=== PATIENT | male | born 2000 | race Caucasian/White ===

== ENCOUNTER 2019-12-13 08:29 | Emergency (ER) | payer SELFPAY ==
[2019-12-13 08:46] VITALS: BP 151/78; PULSE 85; RESP 16; TEMP 37.2; O2SAT 99
--- NOTE | 2019-12-13 08:58 | ED.WOUNDLAC ---
HPI - Wound/Laceration General Chief Complaint: Wound/Laceration Stated Complaint: laceration left arm Time Seen by Provider: 12/13/19 08:50 Source: patient Mode of arrival: ambulatory Limitations: no limitations History of Present Illness HPI narrative: Matias Mi is a 19-year-old male with history of multiple lacerations who comes to the [facility] care after sticking hand through window when upset with girlfriend. States his feelings were hurt. He has multiple small lacerations of his arm with 2 or 3 areas of skin avulsion but all are superficial. Patient states pain is 3 out of 10, states that he occasionally acts out when he is upset or feelings are hurt Related Data Allergies Allergy/AdvReac Type Severity Reaction Status Date / Time No Known Allergies Allergy Unknown Verified 12/13/19 08:56 Review of Systems Review of Systems: Narrative: CONSTITUTIONAL: Denies fever, chills, sweats. EYES: Denies visual changes, redness, discharge. ENT: Denies rhinorrhea, congestion, sore throat, otalgia. CARDIOVASCULAR: Denies chest pain, palpitations, edema. RESPIRATORY: Denies dyspnea, wheezing, cough GASTROINTESTINAL: Denies abdominal pain, nausea, vomiting, diarrhea. GENITOURINARY: Denies dysuria, hematuria, abnormal discharge SKIN: Denies rash or itching. Multiple small skin lacerations (10-12) NEUROLOGIC: Denies numbness, or focal weakness. PSYCHIATRIC: Denies anxiety or depression. PMFSH Past Medical History Medical History No active medical problems Family History Family History Other Diabetes mellitus Social History Social History (Updated 12/13/19 @ 09:18 by Sayra Davis CNP) Smoking packs per day: 0.5 Smoking cigarettes per day: 10.0 Smoking status: Current every day smoker Alcohol intake: former Living arrangements: with family Gender identity (if verbalized by the patient): Male Comments At time of signature, I agree with nursing past medical, surgical, social and family history. There is no relevant family history pertinent to the presenting complaint. Patient's blood pressure currently elevated due to stress of situation injury to arm Exam Narrative: Exam Narrative: GENERAL: This is a well-nourished, well-developed patient, in mild distress. HEAD: normocephalic, atraumatic. EYES: Sclera clear/white. Vision is grossly intact. EARS: Hearing grossly intact. NOSE: External nose normal without nasal discharge, nares without redness, no rhinorrhea. THROAT: Mucous membranes moist, NECK: Neck supple, non-tender CARDIOVASCULAR: Regular rate and rhythm without murmurs, gallops, or rubs. RESPIRATORY: Clear to auscultation. Breath sounds equal bilaterally. No wheezes, rales, or rhonchi. GASTROINTESTINAL: Abdomen soft, non-tender, SKIN: warm, intact with no suspicious lesions or rash, good texture and turgor. 10-12 small superficial lacerations to her arm-controlled bleeding NEURO: awake, alert, and oriented to person, place and time. There were no obvious focal neurologic abnormalities. Steady gait EXTREMITIES: Normal range of motion. BACK: Nontender without deformity Course Course Emergency Course: Wounds irrigated and repaired with Steri-Strips and dressing On Keflex. Ibuprofen 800 mg twice daily Follow-up with primary care physician Vital Signs Vital signs: Vital Signs Temperature 98.9 F 12/13/19 08:46 Pulse Rate 85 12/13/19 08:46 Respiratory Rate 16 12/13/19 08:46 Blood Pressure 151/78 H 12/13/19 08:46 Pulse Oximetry 99 12/13/19 08:46 Temperature 98.9 F 12/13/19 08:46 Pulse Rate 85 12/13/19 08:46 Respiratory Rate 16 12/13/19 08:46 Blood Pressure 151/78 H 12/13/19 08:46 Pulse Oximetry 99 12/13/19 08:46 Procedures Laceration Laceration 1: Date: 12/13/19 Time: : Site: upper extremity Side (If
[2019-12-13] MEDS: TETANUS,DIPHTHERIA,AC PERTUSSIS ADULT (0.5 ML) BOOSTRIX IM (09:16)
== END 2019-12-13 09:30 | disposition home or self-care (01) ==
PROVIDERS: Emergency Provider Nurse Practitioner; PCP Emergency Medicine
DX: S41.112A Laceration without foreign body of left upper arm, initial encounter (principal); W25.XXXA Contact with sharp glass, initial encounter; Z23 Encounter for immunization; F17.210 Nicotine dependence, cigarettes, uncomplicated
CPT/HCPCS: 90471; 90715; 99213; G0463

== ENCOUNTER 2021-08-11 20:46 | Emergency (ER) | payer SELFPAY ==
--- NOTE | ~2021-08-11 | XR_ITS ---
EXAMINATION: XR chest 2V Exam Date/Time: 08/11/2021 21:19 CDT HISTORY: SOB, GENERALIZED CP, HX CHILDHOOD ASTHMA, SMOKER Comparison: None available. RESULT: Lines, tubes, and devices: None. Lungs and pleura: Clear. Cardiomediastinal silhouette: Normal cardiomediastinal silhouette. Other: No acute osseous or upper abdominal finding. IMPRESSION: No acute cardiopulmonary process. Reviewed, dictated and finalized at location K.
[2021-08-11 20:48] VITALS: BP 146/77; PULSE 104; RESP 20; TEMP 36.8; O2SAT 96
--- NOTE | 2021-08-11 21:12 | ECG_ITS ---
Measurements Intervals [place] Rate: 85 P: 45 RI: 150 QRS: 73 QRSD: 102 T: 61 QT: 334 QTc: 398 Interpretive Statements SINUS RHYTHM NORMAL ECG Electronically Signed On 08-12-2021 6:10:09 CDT by Max Weeks D.O.
--- NOTE | 2021-08-11 21:13 | ED.SKABFB ---
HPI - Skin/Abscess/Foreign Bdy General Chief complaint: Skin/Abscess/Foreign Body Stated complaint: lumps all over head and neck Time Seen by Provider: 08/11/21 21:03 History of Present Illness HPI narrative: Patient is a 21-year-old male here for evaluation of multiple lumps that he noticed on his body. States he first noticed a lump on his left neck about a month ago, and since then it has grown in size. The lump is painful and firm. States he has noted lump on the right side of his neck developed last week, in addition to one on the top of his head several days ago. Additionally reports excessive fatigue over the past month, he has had little to no energy to do anything, which is led to almost a 40 pound weight gain. States he has also had exertional shortness of breath, which he attributed to his smoking. Denies cough, fevers, chills, bone pain, history of malignancy in immediate family. No new medications, patient states he was previously healthy. Related Data Allergies Allergy/AdvReac Type Severity Reaction Status Date / Time No Known Allergies Allergy Unknown Verified 08/11/21 21:31 Review of Systems Review of Systems: Gen: Reports fatigue and weight gain. Eyes: Denies eye pain or visual change ENT: Denies congestion Respiratory: Reports shortness of breath. Denies shortness of breath or cough CV: Denies chest pain or palpitations GI: Denies abdominal pain nausea, emesis or diarrhea : denies burning, urgency, frequency or hematuria Musculoskeletal: Denies back pain or muscle pain Neuro: Denies numbness, tingling, weakness or focal weakness Skin: Reports lumps on neck. Denies rash Except as documented, all other systems reviewed and negative PMF Past Medical History Medical History (Updated 08/12/21 @ 00:01 by Rachel Sagastume) No active medical problems Family History Family History Other Diabetes mellitus Social History Social History (Updated 12/13/19 @ 09:18 by Sayra Davis CNP) Smoking packs per day: 0.5 Smoking cigarettes per day: 10.0 Smoking status: Current every day smoker Alcohol intake: former Gender identity (if verbalized by the patient): Male Exam Narrative: APPEARANCE: Well appearing, no pain in distress, well-nourished. Head: normocephalic and atraumatic. EYES: PERRLA/EOMI, conjunctivae clear NOSE: No nasal drainage EARS: External ear normal in appearance THROAT: Oropharynx is clear. Mucous membranes are moist. NECK: Supple. firm, tender, somewhat mobile left posterior cervical lymphadenopathy. Smaller area of lymphadenopathy to right posterior cervical region that is also firm and tender. RESPIRATORY: Airway patent, respirations nonlabored. Clear to auscultation bilaterally, no rales, rhonchi, wheezing. CARDIOVASCULAR: Regular rate and rhythm without murmurs, rubs, or gallops. ABDOMINAL: Normoactive bowel sounds. Soft, nontender, nondistended. No rebound tenderness or guarding. MUSCULOSKELETAL: Extremities are warm and well-perfused. Moves all extremities well. No edema. NEURO: Normal speech. No focal neurologic deficits. SKIN: patient has scab to posterior aspect of scalp. PSYCHIATRIC: Normal affect/mood. Course Vital Signs Vital signs: Vital Signs Temperature 98.2 F 08/11/21 20:48 Pulse Rate 104 H 08/11/21 20:48 Respiratory Rate 20 08/11/21 20:48 Blood Pressure 146/77 H 08/11/21 20:48 Pulse Oximetry 96 08/11/21 20:48 Temperature 98.2 F 08/11/21 20:48 Pulse Rate 85 08/11/21 23:01 Respiratory Rate 16 08/11/21 23:01 Blood Pressure 125/65 08/11/21 23:01 Pulse Oximetry 97 08/11/21 23:01 MDM - Skin/Abscess/Foreign Bdy MDM Narrative Medical decision making narrative: 21-year-old male here for evaluation of lymphadenopathy and fatigue over the past month. Patient with firm, tender posterior lymphadenopathy on the right and the left side. Work-up significant f
[2021-08-11 21:50] LABS: Basophils Absolute Auto 0.1 K/mm3 (0.0-0.1); Basophils Percent Auto 0.4 % (0.2-1.2); Eosinophils Absolute Auto 0.2 K/mm3 (0-0.3); Eosinophils Percent Auto 1.8 % (0-4.4); Hematocrit 45.4 % (42.0-52.0); Immature Granulocyte Absolute 0.05 K/mm3 (0.00-0.031); Immature Granulocyte Percent A 0.4 % (0-0.5); Lymphocytes Absolute Auto 3.67 K/mm3 (0.9-3.2); Lymphocytes Percent Auto 26.9 % (18.3-44.2); Mean Corpuscular Hemoglobin 30.4 pg (26-34); Mean Corpuscular Volume 92.1 fl (80-100); Mean Platelet Volume 8.6 fl (7.4-10.4); Monocytes Absolute Auto 0.8 K/mm3 (0.1-0.6); Monocytes Percent Auto 5.8 % (2.6-8.5); Neutrophils Absolute Auto 8.8 K/mm3 (1.3-6.7); Neutrophils Percent Auto 64.7 % (45.5-73.1); Platelet Count Result 293 k/mm3 (150-375); Red Blood Count 4.93 M/mm3 (4.6-6.20); Red Cell Distribution Width 12.8 % (11.5-14.5); White Blood Count 13.6 K/mm3 (4.5-10.0)
[2021-08-11 22:00] LABS: Alanine Aminotransferase 31 U/L (6-50); Albumin Level 4.7 g/dL (3.5-5.1); Alkaline Phosphatase 79 U/L (38-126); Anion Gap 8 mmol/L (8-16); Aspartate Amino Transferase 31 U/L (17-59); Bilirubin,Total 0.3 mg/dL (0.2-1.3); Blood Urea Nitrogen 20 mg/dL (9-20); Calcium 8.7 mg/dL (8.4-10.2); Carbon Dioxide 25 mmol/L (22-30); Chloride 103 mmol/L (98-107); Estimated CRCL calculation 115 ml/min; Estimated Glomerular Filt Rate > 60; Glucose 100 mg/dL (65-110); Potassium 4.5 mmol/L (3.4-5.0); Sodium 136 mmol/L (137-145)
[2021-08-11 22:26] LABS: Monoscreen Negative (Negative); Negative Monotest Control Negative (Negative); Positive Monotest Control Positive (Positive)
[2021-08-11 23:01] VITALS: BP 125/65; PULSE 85; RESP 16; O2SAT 97
== END 2021-08-11 23:03 | disposition home or self-care (01) ==
PROVIDERS: Physician Assistant; Emergency Provider Emergency Medicine
DX: R59.1 Generalized enlarged lymph nodes (principal); F17.210 Nicotine dependence, cigarettes, uncomplicated
CPT/HCPCS: 36415; 71046; 80053; 85025; 86308; 93005; 99283

== ENCOUNTER 2022-01-03 15:53 | Emergency (ER) | payer OTHER, SELFPAY ==
--- NOTE | ~2022-01-03 | CT_ITS ---
EXAMINATION: CT soft tiss nk chst ab pel w DATE: 01/03/2022 22:39 INDICATION: Lymphadenopathy. Weight loss. Fever. TECHNIQUE: Computed tomography (CT) of the neck, chest, abdomen, and pelvis was performed with 100 mL Omnipaque 350 intravenous contrast. Automated exposure control and iterative reconstruction techniqu e were employed. The dose-length product was 2150.53 mGy-cm. COMPARISON: CT abdomen and pelvis 06/11/2016 FINDINGS: NECK CT: There are no pathologically enlarged lymph nodes. The cervical carotid arteries are normal. There is mild kyphosis of cervical spine. The mastoid air cells are normal. There is mild mucosal thickening i n the paranasal sinuses. There are carious lesions of teeth 4, 5, 13, 15, and 32. CHEST CT: There is no pneumonia or pleural effusion. The heart size is normal. No pericardial effusion. There a re no pathologically enlarged lymph nodes. ABDOMEN/PELVIS CT: The liver, gallbladder, spleen, pancreas, and adrenal glands are normal. There are cysts in the kidne ys measuring up to 16 mm on the right. There are no dilated loops of bowel. The appendix is normal. T here are no pathologically enlarged lymph nodes. There is no free intraperitoneal fluid. There is mil d thoracolumbar spondylosis. IMPRESSION: 1. No lymphadenopathy. 2. Dental disease. Reviewed, dictated and finalized at location B.
[2022-01-03 16:05] VITALS: BP 149/77; PULSE 76; RESP 18; TEMP 36.5; O2SAT 99
[2022-01-03 16:34] LABS: Basophils Percent Auto 0.4 % (0.2-1.2); Eosinophils Absolute Auto 0.2 K/mm3 (0-0.3); Eosinophils Percent Auto 2.4 % (0-4.4); Hematocrit 47.2 % (42.0-52.0); Hemoglobin 15.7 g/dL (14.0-18.0); Immature Granulocyte Absolute 0.03 K/mm3 (0.00-0.031); Immature Granulocyte Percent A 0.3 % (0-0.5); Lymphocytes Absolute Auto 3.52 K/mm3 (0.9-3.2); Lymphocytes Percent Auto 36.9 % (18.3-44.2); Mean Corpuscular HGB Conc 33.3 g/dl (32-36); Mean Corpuscular Hemoglobin 30.2 pg (26-34); Mean Corpuscular Volume 90.8 fl (80-100); Mean Platelet Volume 8.6 fl (7.4-10.4); Monocytes Absolute Auto 0.6 K/mm3 (0.1-0.6); Monocytes Percent Auto 5.8 % (2.6-8.5); Neutrophils Absolute Auto 5.2 K/mm3 (1.3-6.7); Neutrophils Percent Auto 54.2 % (45.5-73.1); Platelet Count Result 318 k/mm3 (150-375); White Blood Count 9.6 K/mm3 (4.5-10.0)
[2022-01-03 17:40] LABS: Alanine Aminotransferase 25 U/L (6-50); Albumin Level 4.5 g/dL (3.5-5.1); Alkaline Phosphatase 78 U/L (38-126); Anion Gap 11 mmol/L (8-16); Aspartate Amino Transferase 29 U/L (17-59); Bilirubin,Total 0.4 mg/dL (0.2-1.3); Blood Urea Nitrogen 11 mg/dL (9-20); Calcium 9.1 mg/dL (8.4-10.2); Carbon Dioxide 25 mmol/L (22-30); Chloride 104 mmol/L (98-107); Estimated CRCL calculation 147 ml/min; Estimated Glomerular Filt Rate > 60; Glucose 105 mg/dL (65-110); Potassium 4.1 mmol/L (3.4-5.0); Sodium 140 mmol/L (137-145)
[2022-01-03 21:12] VITALS: BP 141/93; PULSE 74; RESP 18; TEMP 36.1; O2SAT 99
--- NOTE | 2022-01-03 21:24 | ED.GENADULT ---
HPI - General Adult General Chief complaint: Unspecified Stated complaint: Body Aches, Swollen Lymph Node Time Seen by Provider: 01/03/22 21:14 History of Present Illness HPI narrative: 21-year-old male presents to the emergency room for evaluation of multiple swollen and tender lymph nodes to the left side of his neck. Patient states that these have been present for 5 weeks. Patient also remarks that he has been experiencing night fevers and weight loss of 20 pounds in the last 2 weeks. Patient has a positive family history of non-Hodgkin's lymphoma. Patient remarks that he has noticed new painful lymph nodes to the left submandibular lymph node chain. Related Data Home Medications Medication Instructions Recorded Confirmed cholecalciferol (vitamin D3) 25 25 mcg PO DAILY 12/31/21 mcg (1,000 unit) capsule Allergies Allergy/AdvReac Type Severity Reaction Status Date / Time No Known Allergies Allergy Unknown Verified 12/31/21 13:30 Review of Systems Review of Systems: CONSTITUTIONAL: Reports fever, chills and sweats EYES: Denies visual changes, redness, or discharge. ENT: Denies rhinorrhea, congestion, sore throat, or otalgia. CARDIOVASCULAR: Denies chest pain, palpitations, or edema. RESPIRATORY: Reports dyspnea. GASTROINTESTINAL: Reports abdominal pain GENITOURINARY: Denies dysuria or hematuria. SKIN: Denies rash or itching. MUSCULOSKELETAL: Denies back pain, joint pain, or myalgia. NEUROLOGIC: Denies headache, numbness, dizziness, or weakness. PSYCHIATRIC: Denies anxiety or depression. [facility] Past Medical History Medical History (Updated 01/03/22 @ 23:01 by Luis Daniel Wilkins APRN) Asthma Depression Lymphadenopathy, cervical Surgical History Surgical History History of right knee surgery History of testicular surgery testicular torsion History of tonsillectomy Family History Family History Other Lymphoma Grandparent Diabetes mellitus Heart disease Social History Social History Smoking packs per day: 0.5 Smoking cigarettes per day: 10.0 Years smoked: 11 Smoking pack-years: 5.50 Smoking status: Current every day smoker Tobacco type: cigarettes Alcohol intake: current Alcohol use details: rare 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 HEAD: Normocephalic, atraumatic. EYES: Conjunctivae normal, PERRLA and EOMI. ENT: External nose normal, Nares clear, no rhinorrhea or epistaxis. Mucous membranes moist. Oropharynx without tonsillar hypertrophy exudate or other lesions. External ears normal, bilateral TMs normal bilaterally NECK: Supple. Palpable lymph nodes to the left cervical and submandibular node chain. No palpable subclavian or axillary lymphadenopathy CHEST: Clear to auscultation. No respiratory distress. No wheezes rales or rhonchi. HEART: Regular rate and rhythm. No murmur heard. Normal peripheral pulses. ABD: No abdominal tenderness, no distention, bowel sounds present x4 EXTREMITIES: Normal range of motion. No edema. No clubbing or cyanosis SKIN: Warm, dry, no rash. No noted wounds NEURO: No focal deficits. Alert and oriented x3. MAEW. CN's II-XI intact bilaterally, normal gait PSYCH: Cooperative. Normal mood and affect. Course Vital Signs Vital signs: Vital Signs Temperature 36.5 C 01/03/22 16:05 Pulse Rate 76 01/03/22 16:05 Respiratory Rate 18 01/03/22 16:05 Blood Pressure 149/77 H 01/03/22 16:05 Pulse Oximetry 99 01/03/22 16:05 Oxygen Delivery Room Air 01/03/22 16:05 Temperature 36.1 C L 01/03/22 21:12 Pulse Rate 74 01/03/22 21:12 Respiratory Rate 18 01/03/22 21:12 Blood Pre
[2022-01-03] MEDS: SODIUM CHLORIDE 0.9% IV 1,000 ML 999 ML IV CONT (21:31)
--- NOTE | 2022-01-03 22:13 | PC.NURSE ---
Patient taken to CT at this time.
[2022-01-03 23:08] VITALS: BP 145/79; PULSE 73; RESP 18; O2SAT 99
== END 2022-01-03 23:08 | disposition home or self-care (01) ==
PROVIDERS: Emergency Medicine; Emergency Provider Nurse Practitioner Family; PCP Emergency Medicine
DX: R59.1 Generalized enlarged lymph nodes (principal); J45.909 Unspecified asthma, uncomplicated; F17.210 Nicotine dependence, cigarettes, uncomplicated
CPT/HCPCS: 36415; 70491; 71260; 74177; 80053; 85025; 96360; 99284; J7030; Q9967

== ENCOUNTER 2022-01-07 14:01 | Outpatient (CLI) | payer OTHER, SELFPAY ==
--- NOTE | ~2022-01-07 | US_ITS ---
EXAMINATION: US soft tissue head and neck DATE: 01/07/2022 14:36 INDICATION: Bilateral neck lymphadenopathy. TECHNIQUE: Multiple grayscale and Doppler ultrasound images of the head and neck were obtained. COMPARISON: CT neck 01/03/2022 FINDINGS: There are normal sized lymph nodes in the neck bilaterally. IMPRESSION: 1. No lymphadenopathy. Reviewed, dictated and finalized at location A. IMPRESSION: 1. No lymphadenopathy.
--- NOTE | ~2022-01-07 | XR_ITS ---
EXAMINATION: XR chest 2V 01/07/2022 14:18 INDICATION: Shortness of breath. Fever. PROCEDURE: 2 view chest COMPARISON: 08/11/2021 FINDINGS: The lungs are clear. The cardiomediastinal silhouette is within normal limits. There are no pleural effusions. There is no pneumothorax suspected. IMPRESSION: 1: NO ACUTE CARDIOPULMONARY DISEASE. Reviewed, dictated and finalized at location A.
== END 2022-01-07 14:02 | disposition home or self-care (01) ==
PROVIDERS: PCP Emergency Medicine; Visit Provider Emergency Medicine
DX: R59.0 Localized enlarged lymph nodes (principal)
CPT/HCPCS: 71046; 76536

== ENCOUNTER 2022-03-17 08:36 | Outpatient (CLI) | payer OTHER, SELFPAY ==
--- NOTE | ~2022-03-17 | US_ITS ---
EXAMINATION: US soft tissue head and neck DATE: 03/17/2022 09:25 INDICATION: Cervical lymphadenopathy. TECHNIQUE: Multiple grayscale and Doppler ultrasound images of the left and right sides of neck were obtained. COMPARISON: Ultrasound dated 01/07/[address] dated 01/03/2022 FINDINGS: Again seen are multiple prominent lymph nodes at the left and right neck. The majority remain within normal limits measuring <7 mm in maximal short axis diameter. There has however been interval increas e in size of a previously 2.4 x 2.3 x 0.9 cm lymph node located near the angle of the mandible which has increased in thickness now measuring 2.4 x 2.2 x 1.2 cm. IMPRESSION: 1. Multiple prominent bilateral cervical lymph nodes all which remain within normal limits in size wi th the exception of a right submandibular lymph node near the angle of the mandible which is increase d in thickness from 9 mm to 1.2 cm. Correlate with clinical history. Could consider continued ultraso und follow-up if there has been a recent known infection or other clear cause for reactive lymphadeno matt. Otherwise if there is no definitive etiology would recommend ultrasound-guided biopsy to exclu de lymphoma or other metastatic disease. Reviewed, dictated and finalized at location A. [employer] IMPRESSION: 1. Multiple prominent bilateral cervical lymph nodes all which remain within no rmal limits in size with the exception of a right submandibular lymph node near the angle of the mandible which is increased in thickness from 9 mm to 1.2 cm. Correlate with clinical history. Could consider continued ultrasound follow-up if there has been a recent known infection or other clear cause for reactive l ymphadenopathy. Otherwise if there is no definitive etiology would recommend ul trasound-guided biopsy to exclude lymphoma or other metastatic disease.
== END 2022-03-17 08:37 | disposition home or self-care (01) ==
PROVIDERS: PCP Emergency Medicine; Visit Provider Internal Medicine Hematology & Oncology
DX: R59.0 Localized enlarged lymph nodes (principal)
CPT/HCPCS: 76536

== ENCOUNTER 2022-04-03 14:18 | Emergency (ER) | payer OTHER, SELFPAY ==
--- NOTE | ~2022-04-03 | CT_ITS ---
EXAMINATION: CT abdomen pelvis wo con DATE: 04/03/2022 16:19 INDICATION: Back pain, testicular pain and hematuria TECHNIQUE: Computed tomography (CT) of the abdomen and pelvis was performed without intravenous contr ast. Automated exposure control and iterative reconstruction technique were employed. The dose-length product was 1766.25 mGy-cm. COMPARISON: CT dated 01/03/2022 FINDINGS: Lung bases are clear. Heart size is normal. No pericardial or pleural effusion. Liver, gallbladder, s pleen, pancreas, bilateral adrenal glands and left kidney are normal. 1.6 cm cyst at the lower pole o f the right kidney. Congestive either a duplicated right renal collecting system or extrarenal pelvis . Bladder is normal. Bowels including the appendix are normal. No free intraperitoneal gas or fluid. No pathologically enlarged abdominal or pelvic lymphadenopathy. Mild thoracic and lumbar spondylosis. IMPRESSION: 1. No acute intra-abdominal/pelvic process. Reviewed, dictated and finalized at location A. NTIST
--- NOTE | ~2022-04-03 | US_ITS ---
EXAMINATION: US scrotum doppler DATE: 04/03/2022 15:20 INDICATION: Bilateral testicular pain. Surgery for a left testicular torsion 6 years prior. TECHNIQUE: Testicular sonogram utilizing grayscale and Doppler COMPARISON: 06/11/2016 FINDINGS: The right testis measures 2.9 x 3.2 x 2.3 cm. The left testis measures 2.9 x 4.1 x 2.1 cm. Symmetric normal grayscale appearance to both testes. There is normal vascular flow to both testes. The right e pididymis is normal with normal vascular flow. The left epididymis is normal with normal vascular mishel w. There is no varicocele or hydrocele. IMPRESSION: 1. Normal scrotal ultrasound Reviewed, dictated and finalized at location A. [employer]
[2022-04-03 14:26] VITALS: BP 152/86; PULSE 94; RESP 20; TEMP 36.4; O2SAT 99
--- NOTE | 2022-04-03 14:50 | ED.BACK ---
HPI - Back Pain/Injury General Chief Complaint: Back Pain/Injury Stated Complaint: back pain Time Seen by Provider: 04/03/22 14:41 History of Present Illness HPI Narrative: 22-year-old male with history of testicular torsion and lower back pain presenting to the emergency department for evaluation of back pain and bilateral testicular pain. Patient states over the last few days he has had intermittent lower back pain that has not improved with stretching. Patient states last night when he woke up he was having bilateral testicular pain. Patient denies any injury of his back or of his testicles. Patient denies any fevers nausea vomiting diarrhea. Patient denies any associated numbness or weakness. Patient had torsion was when he was in high school and affected the left side. Patient denies any high risk sexual behavior. Related Data Home Medications Medication Instructions Recorded Confirmed cholecalciferol (vitamin D3) 25 25 mcg PO DAILY 12/31/21 01/08/22 mcg (1,000 unit) capsule Allergies Allergy/AdvReac Type Severity Reaction Status Date / Time No Known Allergies Allergy Unknown Verified 04/03/22 14:29 Review of Systems Review of Systems: CONSTITUTIONAL: Denies fever, chills, or sweats. EYES: Denies visual changes, redness, or discharge. ENT: Denies rhinorrhea, congestion, sore throat, or otalgia. CARDIOVASCULAR: Denies chest pain, palpitations, or edema. RESPIRATORY: Denies cough or dyspnea. GASTROINTESTINAL: Denies abdominal pain, nausea, vomiting, or diarrhea. GENITOURINARY: See HPI SKIN: Denies rash or itching. MUSCULOSKELETAL: See HPI NEUROLOGIC: Denies headache, numbness, or weakness. [facility] Past Medical History Medical History (Updated 04/03/22 @ 16:52 by Willie Swann MD) Asthma Depression Lymphadenopathy, cervical Surgical History Surgical History History of right knee surgery History of testicular surgery testicular torsion History of tonsillectomy Family History Family History Other Lymphoma Grandparent Diabetes mellitus Heart disease Social History Social History Smoking packs per day: 0.5 Smoking cigarettes per day: 10.0 Years smoked: 11 Smoking pack-years: 5.50 Smoking status: Current every day smoker Tobacco type: cigarettes Alcohol intake: current Alcohol use details: rare 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 HEAD: normocephalic, atraumatic. EYES: PERRLA/EOMI, conjunctivae clear. NOSE: Normal no drainage NECK: Supple. No adenopathy, no masses. RESPIRATORY: Airway patent, respirations nonlabored. Clear to auscultation bilaterally, no rales, rhonchi, wheezing. CARDIOVASCULAR: Regular rate and rhythm without murmurs rubs or gallops. ABDOMINAL: Soft, nontender, nondistended, normal bowel sounds. No CVA tenderness to palpitation bilaterally. MUSCULOSKELETAL: Reproducible lower back tenderness to palpation. NEURO: Alert. Cranial nerves II through XII intact. Good gait. Good coordination Genitourinary: Bilateral testicular tenderness to palpation. No scrotal edema, no erythema, neither testicle is high riding. SKIN: Warm, dry. Normal Color Course Course Emergency Course: Patient did have some mild testicular tenderness to palpation with normal testicular exam. Patient was afebrile with no leukocytosis. Patient's kidney function and CMP are similar to his baseline. Patient did have some hematuria on his UA so a CT scan was ordered to rule out ureteral calculi. Ultrasound showed no evidence of testicular torsion. CT abdomen pelvis showed no intra-abdominal/pelvic abnormality. Patient was updated on the results. Diff
[2022-04-03 15:52] LABS: Basophils Absolute Auto 0.1 K/mm3 (0.0-0.1); Basophils Percent Auto 0.6 % (0.2-1.2); Eosinophils Absolute Auto 0.3 K/mm3 (0-0.3); Hematocrit 46.8 % (42.0-52.0); Hemoglobin 15.6 g/dL (14.0-18.0); Immature Granulocyte Absolute 0.04 K/mm3 (0.00-0.031); Immature Granulocyte Percent A 0.4 % (0-0.5); Lymphocytes Absolute Auto 3.78 K/mm3 (0.9-3.2); Lymphocytes Percent Auto 40.3 % (18.3-44.2); Mean Corpuscular HGB Conc 33.3 g/dl (32-36); Mean Corpuscular Hemoglobin 30.8 pg (26-34); Mean Corpuscular Volume 92.5 fl (80-100); Mean Platelet Volume 8.5 fl (7.4-10.4); Monocytes Absolute Auto 0.7 K/mm3 (0.1-0.6); Monocytes Percent Auto 6.9 % (2.6-8.5); Neutrophils Absolute Auto 4.6 K/mm3 (1.3-6.7); Neutrophils Percent Auto 48.8 % (45.5-73.1); Platelet Count Result 316 k/mm3 (150-375); Red Blood Count 5.06 M/mm3 (4.6-6.20); White Blood Count 9.4 K/mm3 (4.5-10.0)
[2022-04-03 15:54] LABS: Appearance Urine Clear (Clear); Bilirubin Urine 1+ (Negative); Blood Urine Negative (Negative); Color Urine Yellow (Yellow); Glucose Urine UA Negative (Negative); Ketones Urine Negative (Negative); Leukocyte Esterase Ur Negative LEU/UL (Negative); Nitrate Urine Negative (Negative); Protein Urine 1+ mg/dL (Negative)
[2022-04-03 15:57] LABS: Calcium Oxalate Crystals Urine Present /hpf; Mucus Urine Few /lpf; Squamous Epithelial Cell Urine Rare /hpf (Few); WBC Urine 0-3 /hpf
[2022-04-03 15:58] LABS: Add Urine Microscopic? YES
[2022-04-03 16:08] LABS: Alanine Aminotransferase 45 U/L (6-50); Albumin Level 4.9 g/dL (3.5-5.1); Alkaline Phosphatase 78 U/L (38-126); Anion Gap 8 mmol/L (8-16); Aspartate Amino Transferase 33 U/L (17-59); Bilirubin,Total 0.4 mg/dL (0.2-1.3); Blood Urea Nitrogen 14 mg/dL (9-20); Calcium 8.9 mg/dL (8.4-10.2); Carbon Dioxide 28 mmol/L (22-30); Chloride 99 mmol/L (98-107); Estimated CRCL calculation 144 ml/min; Estimated Glomerular Filt Rate > 60; Glucose 91 mg/dL (65-110); Potassium 4.1 mmol/L (3.4-5.0); Sodium 135 mmol/L (137-145)
== END 2022-04-03 17:09 | disposition home or self-care (01) ==
PROVIDERS: Emergency Provider Emergency Medicine; PCP Emergency Medicine
DX: S39.012A Strain of muscle, fascia and tendon of lower back, initial encounter (principal); R31.29 Other microscopic hematuria; N50.812 Left testicular pain; N50.811 Right testicular pain; J45.909 Unspecified asthma, uncomplicated; F17.210 Nicotine dependence, cigarettes, uncomplicated; X58.XXXA Exposure to other specified factors, initial encounter
CPT/HCPCS: 36415; 74176; 76870; 80053; 81001; 85025; 87491; 87591; 93976; 99284

== ENCOUNTER 2022-07-03 09:55 | Emergency (ER) | payer OTHER, SELFPAY ==
[2022-07-03 10:14] VITALS: BP 155/96; PULSE 73; RESP 20; TEMP 36.3; O2SAT 99
--- NOTE | 2022-07-03 10:35 | ED.DENTAL ---
HPI - Dental/Oral General Chief complaint: Dental/Oral Stated complaint: Dental Pain Source: patient and RN notes reviewed History of Present Illness HPI Narrative: 22-year-old male presents to urgent care with complaints of left dental pain and left-sided facial swelling. Patient states he has been fighting a dental section quite some time and is currently on day 7 of amoxicillin. Patient states he woke up yesterday with swelling to his left side of face. Patient denies any fevers, chills, trouble breathing, or vomiting. Patient states he has been doubling up on his amoxicillin every day. Patient has appointment with his dentist on Tuesday. Some parts of this dictation were generated by voice recognition software and may contain typographical and/or grammatical inaccuracies. Related Data Allergies Allergy/AdvReac Type Severity Reaction Status Date / Time No Known Allergies Allergy Unknown Verified 07/03/22 10:13 Review of Systems Review of Systems: Pertinent positives and pertinent negatives per HPI. [facility] Past Medical History Medical History (Updated 07/03/22 @ 10:42 by Leni Medellin, CARLOS) Asthma Depression Lymphadenopathy, cervical Surgical History Surgical History History of right knee surgery History of testicular surgery testicular torsion History of tonsillectomy Family History Family History Other Lymphoma Grandparent Diabetes mellitus Heart disease Social History Social History Smoking packs per day: 0.5 Smoking cigarettes per day: 10.0 Years smoked: 11 Smoking pack-years: 5.50 Smoking status: Current every day smoker Tobacco type: cigarettes Alcohol intake: current Alcohol use details: rare Living arrangements: alone Occupation/Education: unemployed 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 There is no relevant family history pertinent to the patient complaint. Exam Narrative: GENERAL: This is a well-nourished, well-developed patient, in no apparent distress. HEAD: normocephalic, atraumatic. EYES: PERRL. Sclera clear/white. Vision is grossly intact. MOUTH:Cracked tooth #14. Swelling of gums adjacent to number 14 with left sided facial swelling. EARS: External ears normal, auditory canals clear and without drainage, TMs normal without perforation. Hearing grossly intact. NOSE: External nose normal with no obvious nasal discharge, nares without redness, no rhinorrhea. THROAT: Mucous membranes moist, posterior pharynx clear. NECK: Neck supple, non-tender without lymphadenopathy, masses or thyromegaly. CARDIOVASCULAR: Regular rate RESPIRATORY: Clear to auscultation. Breath sounds equal bilaterally. No wheezes, rales, or rhonchi. SKIN: warm, intact with no suspicious lesions or rash, good texture and turgor. NEURO: awake, alert, and oriented to person, place and time. There were no obvious focal neurologic abnormalities. Course Course Level of Care: Express Care Visit Vital Signs Vital signs: Vital Signs Temperature 97.4 F L 07/03/22 10:14 Pulse Rate 73 07/03/22 10:14 Respiratory Rate 20 07/03/22 10:14 Blood Pressure 155/96 H 07/03/22 10:14 Pulse Oximetry 99 07/03/22 10:14 Oxygen Delivery Room Air 07/03/22 10:14 Temperature 97.4 F L 07/03/22 10:14 Pulse Rate 73 07/03/22 10:14 Respiratory Rate 20 07/03/22 10:14 Blood Pressure 155/96 H 07/03/22 10:14 Pulse Oximetry 99 07/03/22 10:14 Oxygen Delivery Room Air 07/03/22 10:14 Reviewed MDM - Dental/Oral MDM Narrative Medical decision making narrative: Take antibiotic until it's gone. Brus
== END 2022-07-03 10:48 | disposition home or self-care (01) ==
PROVIDERS: Emergency Provider Nurse Practitioner Family; PCP Emergency Medicine
DX: K04.7 Periapical abscess without sinus (principal); F17.210 Nicotine dependence, cigarettes, uncomplicated; J45.909 Unspecified asthma, uncomplicated
CPT/HCPCS: 99213; G0463

== ENCOUNTER 2023-08-23 17:38 | Emergency (ER) | payer OTHER, SELFPAY ==
--- NOTE | ~2023-08-23 | XR_ITS ---
EXAM: XR foot LT min 3V DATE: 08/23/2023 18:01 HISTORY: Pain bruising swelling, 5th toe, distal lateral LT 1 day . COMPARISON: None available. FINDINGS: Normal mineralization. Mildly comminuted, nondisplaced, extra-articular fracture of the le ft fifth proximal phalange. No lytic or blastic lesion. Joint spaces are maintained. No erosion or pe riosteal change. Soft tissues within normal limits. IMPRESSION: Mildly comminuted, nondisplaced, extra-articular fracture of the left fifth proximal phal sofía. Reviewed, dictated and finalized at location K. IMPRESSION: Mildly comminuted, nondisplaced, extra-articular fracture of the le ft fifth proximal phalange.
[2023-08-23 17:47] VITALS: BP 153/73; PULSE 76; RESP 18; TEMP 36.6; O2SAT 97
--- NOTE | 2023-08-23 18:01 | ED.LOWEXIN ---
HPI - Extremity Injury (Lower) General Chief Complaint: Extremity Injury, Lower Stated Complaint: left pinky toe injury Time Seen by Provider: 08/23/23 17:50 Source: patient, RN notes reviewed and old records reviewed Mode of arrival: ambulatory Limitations: no limitations History of Present Illness HPI Narrative: 23-year-old male presents to the [facility] with complaints of left 5th toe pain, swelling and bruising as well as lateral foot pain. States that last night he kicked a kid story. No treatment prior to arrival Arrived barefoot Onset (ago): day(s) (1) Related Data Home Medications Medication Instructions Recorded Confirmed No Home Medications 08/23/23 08/23/23 Allergies Allergy/AdvReac Type Severity Reaction Status Date / Time No Known Allergies Allergy Unknown Verified 08/23/23 17:33 Review of Systems Review of Systems: All systems reviewed & are unremarkable except as noted in HPI and below Constitutional: Constitutional: Reports no additional constitutional complaints Eyes: Eyes: Reports no additional eye complaints ENT: Reports system reviewed and no additional complaints, except as documented Cardiovascular: Cardiovascular: Reports no additional cardiovascular complaints, Denies chest pain and Denies dyspnea Respiratory: Respiratory: Reports no additional respiratory complaints, Denies chest congestion, Denies cough and Denies dyspnea Gastrointestinal: Gastrointestinal: Reports no additional gastrointestinal complaints, Denies abdominal pain, Denies nausea and Denies vomiting Musculoskeletal: Musculoskeletal: Reports as per HPI Integumentary/Breasts: Skin/Breast: Reports system reviewed and no additional complaints, except as docu Neurologic: Reports system reviewed and no additional complaints, except as documented Psychiatric: Psychiatric: Reports no additional psychiatric complaints Allergic/Immunologic: Allergic/Immunologic: Reports no additional allergic/immunologic complaints [facility] Past Medical History Medical History Asthma Depression Lymphadenopathy, cervical Surgical History Surgical History History of right knee surgery History of testicular surgery testicular torsion History of tonsillectomy Family History Family History Other Lymphoma Grandparent Diabetes mellitus Heart disease Social History Social History Smoking packs per day: 0.5 Smoking cigarettes per day: 10.0 Years smoked: 11 Smoking pack-years: 5.50 Smoking status: Current every day smoker Tobacco type: cigarettes Alcohol intake: current Alcohol use details: rare Living arrangements: alone Occupation/Education: unemployed 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 There is no relevant family history pertinent to the patient complaint. Exam Const: General: cooperative, healthy appearing, comfortable, no acute distress, well developed, alert and well nourished Nutritional Appearance: well nourished and obese Orientation/consciousness: patient oriented x3 Limitations: no limitations HENMT: Head: normal to inspection Ears: hearing grossly normal bilaterally and external ears normal Face/Nose/Sinus: Normal external nose present, Normal nares present, Normal nasal mucous membranes and turbinates present, normal facial exam and face symmetric Face and sinus: normal facial exam and face symmetric Eyes: General: appearance normal, both eyes and all related structures Alignment and Position: alignment normal Periorbital: periorbital findings normal Pupils: Equal, round
== END 2023-08-23 18:45 | disposition home or self-care (01) ==
PROVIDERS: Emergency Provider Nurse Practitioner; PCP Emergency Medicine
DX: S92.502A Displaced unspecified fracture of left lesser toe(s), initial encounter for closed fracture (principal); W22.8XXA Striking against or struck by other objects, initial encounter; J45.909 Unspecified asthma, uncomplicated; F17.210 Nicotine dependence, cigarettes, uncomplicated
CPT/HCPCS: 73630; 99214; G0463

== ENCOUNTER 2024-10-31 14:46 | Emergency (ER) | payer OTHER, SELFPAY ==
[2024-10-31 14:54] VITALS: BP 123/78; PULSE 66; RESP 20; TEMP 36.7; O2SAT 97
--- NOTE | 2024-10-31 15:02 | ED_ITS ---
HPI - Skin/Abscess/Foreign Bdy General Chief complaint: Skin/Abscess/Foreign Body Stated complaint: stung by yellow jackets/wasp Time Seen by Provider: 10/31/24 15:03 Source: patient and RN notes reviewed Mode of arrival: ambulatory Limitations: dementia History of Present Illness HPI narrative: 24-year-old male presents with concern for redness, swelling, pain, itching of the left arm. Reports several days ago he was stung and both arms by yellow jackets. Reports he has scabs from those areas this he has been scratching. He reports yesterday he was stung by wasps multiple times in the left arm. He reports redness, swelling, pain and itching in the extremity. He has scabbed wounds on the extremity. MD complaint: insect bite/sting and other Related Data Allergies Allergy/AdvReac Type Severity Reaction Status Date / Time No Known Allergies Allergy Unknown Verified 10/31/24 14:49 Review of Systems Review of Systems: CONSTITUTIONAL: Denies malaise, chills, sweats, or fever. EYES: Denies redness, or discharge. ENT: Denies rhinorrhea, congestion, swollen lips, swollen tongue CARDIOVASCULAR: Denies chest pain, palpitations, or edema. RESPIRATORY: Denies cough or dyspnea. GASTROINTESTINAL: Denies abdominal pain, nausea, vomiting SKIN: Reports redness, swelling, pain, itching to the left arm. Denies purulent drainage, vesicles, bullae, numbness, pain beyond proportion MUSCULOSKELETAL: Denies joint pain or myalgia. NEUROLOGIC: Denies headache. All systems reviewed & are unremarkable except as noted in HPI and below PMFSH Past Medical History Medical History Asthma Depression Lymphadenopathy, cervical Surgical History Surgical History History of right knee surgery History of testicular surgery testicular torsion History of tonsillectomy Family History Family History Other Lymphoma Grandparent Diabetes mellitus Heart disease Social History Social History (Updated 08/30/23 @ 09:51 by Rosey Esqueda CMA) Smoking packs per day: 0.5 Smoking cigarettes per day: 10.0 Years smoked: 11 Smoking pack-years: 5.50 Smoking status: Current every day smoker Tobacco type: cigarettes Alcohol intake: current Alcohol use details: rare Substance use: current Substance use type: marijuana Do You Feel Safe in your Home?: Yes Lack of Transportation: No Lack of Food: Never True Current Housing: I Have Housing Concerned About Future Housing: No Difficulty Paying Gas/Electric Bills: No Difficulty Paying for Meds: No Currently Unemployed: YES Education: High School Diploma/GED Difficulty w/ Childcare or Family Care: No Living arrangements: alone Occupation/Education: unemployed 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 There is no relevant family history pertinent to the presenting complaint Exam Narrative: GENERAL: Well-appearing, well-nourished, and in no acute distress. HEAD: Normocephalic, atraumatic. EYES: PERRLA, conjunctivae clear ENT: Mucous membranes moist. NECK: Supple. No lymphadenopathy CHEST: Clear to auscultation. No respiratory distress. HEART: Regular rate and rhythm. SKIN: Warm, dry. Erythema, induration, tenderness, warmth with sharp margins noted to the anterior left forearm with scattered scabbed wounds. No vesicles, bullae, necrosis, ecchymosis, crepitus noted. NEURO: Alert and oriented x3. PSYCH: Normal mood and affect Course Course Emergency Course: Patient is aware of diagnosis, understands and agrees to treatment plan. Anticipatory guidance given. Patient agrees to follow-up as directed and is aware of reasons to seek care at the emergency department. Portions of this record may have been created with voice recognition software Level of Care: Express Care Visit Vital Signs Vital signs: Vital Signs Temperature 98.1 F 10/31/24 14:54 Pulse Rate 66 10/31/24 14:54 Respiratory Rate 20 10/31/24 14:54 Blood Pressure 123/78 10/31/24 14:54 Pulse Oximetry 97 10/31/24 14:54 Oxygen Delivery Room Air 10/31/24 14:54 Temperature 98.1 F 10/31/24 14:54 Pulse Rate 66 10/31/24 14:54 Respiratory Rate 20 10/31/24 14:54 Blood Pressure 123/78 10/31/24 14:54 Pulse Oximetry 97 10/31/24 14:54 Oxygen Delivery Room Air 10/31/24 14:54 Reviewed. MDM - Skin/Abscess/Foreign Bdy MDM Narrative Medical decision making narrative: I evaluated this in the express care. History is obtained from patient who is an independent historian and physical exam was performed.? Available medical records were reviewed. ? Exam findings and relevant testing show no acute concerns or changes; patient is non-toxic appearing and is in no distress. Does not appear at this time to be erythema multiforme, bullous, SJS, TEN; no evidence at this time to suggest RMSF, NSTI, endocarditis or Lyme disease; patient looks well, nontoxic and is tolerating oral intake; no neurologic signs or symptoms; no headache, photophobia or neck pain; afebrile.? Patient does not have history of of penetrating trauma, laceration, blunt trauma, recent surgery, immunosuppression, malignancy, obesity, alcoholism, corticosteroid use.? Discussed the importance of follow-up, patient agrees; question, cellulitis versus necrotizing soft tissue infection versus abscess.?? Patient is appropriate for outpatient treatment and follow-up. Critical Care Time Critical Care Time Critical Care Time: No Discharge Plan Discharge Clinical Impression: Infected insect bite or sting Patient Disposition: Home Condition: Stable Instructions: Antibiotic Form, Cellulitis (ED), Insect Bite or Sting (ED) Additional Instructions: Take medication as directed Apply ice to the sting site and swollen area for pain and itch relief. Apply ice for 20 minutes once every hour as needed. Wrap the ice in a towel or keep a cloth between the ice and skin to keep from freezing the skin. Taking an antihistamine such as diphenhydramine (Benadryl) every 6 hours or a n onsedating one such as Zyrtec daily will help with itching and swelling. Take acetaminophen (Tylenol) or ibuprofen (Motrin) for pain relief as needed. Wash the sting site with soap and water. Apply hydrocortisone cream to the sting site and surrounding skin can help relieve redness and itching. Please follow-up with your primary care doctor if your symptoms do not improve. If you have any worsening of symptoms or any other urgent concerns please go to the ER. Please take medications as prescribed and continue taking your home medications as usual. Patient Language: [place] Prescriptions: New penicillin V potassium 500 mg tablet 500 mg PO Q12H 10 Days Qty: 20 0RF triamcinolone acetonide 0.1 % cream 1 applic TOPICAL BID 7 Days Qty: 80 0RF Follow-up/Referrals: Maynor Guzmán MD [Primary Care Provider] - Time of Disposition: 15:11
== END 2024-10-31 15:16 | disposition home or self-care (01) ==
PROVIDERS: Emergency Provider Nurse Practitioner; PCP Emergency Medicine
DX: T63.461A Toxic effect of venom of wasps, accidental (unintentional), initial encounter (principal); F17.210 Nicotine dependence, cigarettes, uncomplicated; J45.909 Unspecified asthma, uncomplicated
CPT/HCPCS: 99213; G0463